=== PATIENT | female | born 1980 | race Caucasian/White ===

== ENCOUNTER → 2020-01-11 | Outpatient (CLI) | payer BC ==
[~2020-01-11] MED LIST: AMOXICILLI400 MG/51 PO; AMOXICILLIN875 MG PO; GLUCOPHAGE500 MG/TAB PO; METFORMIN500 MG PO; NEXIUM 40MG40 MG PO; PERCOCET 325 MG1 TA2 PO; POTASSIUM CITRA; PREDNISONE1 MG PO; UROCIT-K 5540 MG/TAB PO; ZOFRAN ODT4 MG PO; ZYRTEC ALLERGY10 MG PO
== END ==
LOC: MC.RAD 07:30
DX: Z12.31 Encounter for screening mammogram for malignant neoplasm of breast (principal)

== ENCOUNTER 2020-08-01 09:25 | Inpatient (IN) | payer BC ==
[~2020-08-01] VITALS: Ht 157.5 cm; Wt 98.2 kg
[2020-09-04 10:15] LABS: BASO % 0.6 % (0.0-2.0); EOS # 0.1 (0.0-0.7); EOS % 1.1 % (0-4.0); GRAN # 4.1 (1.4-6.5); GRAN % 66.1 % (42.2-75.2); HEMATOCRIT 41.8 % (37.0-47.0); LYMPH # 1.5 (1.2-3.4); LYMPH % 23.2 % (20.0-51.0); MEAN CELL VOLUME 92 fl (80.0-100.0); MEAN CORPUSCULAR HEMOGLOBIN 31 pg (27.0-31.0); MEAN CORPUSCULAR HGB CONC 34 g/dl (33.0-37.0); MEAN PLATELET VOLUME 9.3 fl (7.4-10.4); MONO # 0.5 (0.1-0.6); MONO % 8.5 % (1.7-9.3); PLATELET COUNT 227 K/mm3 (130-400); RED BLOOD COUNT 4.56 M/mm3 (4.10-5.30); REDCELL DISTRIBUTION WIDTH-CV 11.9 % (11.5-14.5)
[2020-09-04 10:24] LABS: CALCIUM 9.5 mg/dL (8.4-10.2); CREATININE, serum 0.85 (0.52-1.25); POTASSIUM 3.7 mmol/L (3.4-5.0)
[2020-09-05] VITALS (10 sets, daily range): BP systolic 116–157; BP diastolic 67–97; PULSE 87–128; TEMP 97.6–98.9
[2020-09-05 06:13] LABS: CALCIUM 9.8 mg/dL (8.4-10.2); CREATININE, serum 0.82 (0.52-1.25); POTASSIUM 3.6 mmol/L (3.4-5.0)
[2020-09-05] MEDS ORDERED: NEXIUM 24HR20 M1 PO (06:25)
[2020-09-05] MEDS ORDERED: ZOFRAN 4MG T4 MG/TAB PO (06:26)
[2020-09-05] MEDS ORDERED: UROCIT-K 1010 MEQ PO (06:27)
[2020-09-05 06:28] LABS: HEMATOCRIT 42.3 % (37.0-47.0); HEMOGLOBIN 13.8 g/dl (12.5-16.0); MEAN CELL VOLUME 94 fl (80.0-100.0); MEAN CORPUSCULAR HEMOGLOBIN 31 pg (27.0-31.0); MEAN CORPUSCULAR HGB CONC 33 g/dl (33.0-37.0); MEAN PLATELET VOLUME 10.8 fl (7.4-10.4); PLATELET COUNT 196 K/mm3 (130-400); RED BLOOD COUNT 4.52 M/mm3 (4.10-5.30); REDCELL DISTRIBUTION WIDTH-CV 11.9 % (11.5-14.5)
[2020-09-05] MEDS ORDERED: WELLBUTRIN XL150 MG PO (06:29)
[2020-09-05] MEDS ORDERED: ZOLOFT 50MG50 MG PO (06:29)
[2020-09-05] MEDS ORDERED: INDERAL 10MG10 MG PO (06:30)
[2020-09-05] MEDS ORDERED: VALTREX 50500 MG/TAB PO (06:30)
[2020-09-05] MEDS ORDERED: LO LOESTRIN FE1 TAB PO (06:31)
[2020-09-05 06:32] LABS: BAND 1 % (0-10); EOSINOPHIL 2 % (0-4); LYMPHOCYTE 32 % (20.0-51.0); NEUTROPHILS 51 % (42.0-75.2); PLATELET ESTIMATE NORMAL (NORMAL)
--- NOTE | 2020-09-05 12:01 | NUR ---
PATIENT UP TO ROOM 331 FROM OR AT 1120. PATIENT IS ALERT AND ORIENTED X4 BUT DROWSY. FAMILY AT BEDSIDE. POSTOP VITAL SIGNS STABLE. POSTOP FLUIDS INFUSTING TO IV IN LEFT HAND. PATIENT HAS RASCON SECURED ON LEFT LEG. URINE CLEAR AND YELLOW. PATIENT HAS 6 LAP SITES WITH EDGES WELL APPROXIMATED. PATIENT ALSO HAS ONE LESLIE DRAIN ON BULB SUCTION. DRAINAGE LOOKS BLOODY AND SITE HAS GAUZE DRESSING CDI. NO FURTHER NEEDS AT THIS TIME. HEAD TO TOE ASSESSMENT COMPLETE. CALL LIGHT WITHIN REACH.
--- NOTE | 2020-09-05 18:40 | NUR ---
PATIENT DOING WELL POST OP. SCD'S BILATERAL LOWER EXTREMITIES. STATES MILD DISCOMFORT THROUGHT DAY MEDICATIONS GIVEN PER ORDERS. NAUSEATED THIS AFTERNOON AFTER ORAL INTAKE, ZOFRAN GIVEN. NO FURTHER NEEDS AT THIS TIME. RASCON MAINTAINED TO DRAINAGE, URINE PEACH COLORED. 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
--- NOTE | 2020-09-05 23:01 | NUR ---
Patient had cefazolin 2g around 1400. She had nausea and vomitting with sweating and bit dizzy. She has scheduled at 2300. RN called Dr Smith and was told that hold the remaining dose. RN notified the patient about the plan. She complained of pain and didn't the B[place]elia. Tramadol PRN given.
[2020-09-06 00:36] VITALS: BP 122/77; PULSE 95; TEMP 98.5
[2020-09-06 04:35] VITALS: BP 143/84; PULSE 87; TEMP 98.1
--- NOTE | 2020-09-06 04:43 | NUR ---
Patient called this morning crying in pain in her abdomen radiating to her left breast. She usually dont want to take Linwood but this time she asked for it. RN been alternating Ultram and tylenol schedule. She has warm compress in her belly and raise her left arm and she said it helps ease the pain a little bit.
--- NOTE | 2020-09-06 05:12 | NUR ---
MARCE drained measured 30ml serous sanguineous and Adames is 1150 bloody with threads of blood.
[2020-09-06 07:07] LABS: CREATININE, serum 0.75 (0.52-1.25); POTASSIUM 3.9 mmol/L (3.4-5.0)
--- NOTE | 2020-09-06 08:00 | NUR ---
PATIENT IS ALERT AND ORIENTED X4. PATIENT HAS IV TO THE LEFT HAND INT. PATIENT AMBULATED DOWN THE HALLWAY THIS AM. PATIENT IS RECIEVING ANTIBIOTICS WITH ZOFRAN BEFORE TO PREVENT NAUSEA AND VOMITING. SHE TOLERATED THIS WELL THIS MORNING WITH NO N/V. PATIENT IS TAKING PAIN MEDS PRESCRIBED AND USING A HOT COMPRESS FOR PAIN. PATIENT WILL HAVE URINARY CATH REMOVED AND POTENTIALLY HAVE THE LESLIE DRAIN REMOVED TODAY. NO FURTHER NEEDS AT THIS TIME. HEAD TO TOE ASSESSMENT COMPLETE. CALL LIGHT WITHIN REACH.
[2020-09-06 08:13] LABS: HEMATOCRIT 37.3 % (37.0-47.0); HEMOGLOBIN 12.2 g/dl (12.5-16.0)
[2020-09-06 08:18] VITALS: BP 122/78; PULSE 91; TEMP 98.1
[2020-09-06 11:14] VITALS: BP 106/65; PULSE 98; TEMP 98.7
--- NOTE | 2020-09-06 11:46 | NUR ---
Sw met with the pt who stated her preference to return home once medically stable. The lives at home with her , Bhaskar (ph [phone]). Pt does not have a [facility] and is not interested in one at this time. The pt is independent on all ADLs and does not use any DME. The PCP is Jose De Jesus Cruz and she gets her medications from [facility] in [place], [place]. The pt has never used HH services before. No other needs stated at this time. Sw to await further recommendations and follow up as needed. D/C: Home.
[2020-09-06 15:55] VITALS: BP 124/61; PULSE 102; TEMP 98.3
--- NOTE | 2020-09-06 17:47 | NUR ---
Patient has done well today. Ready for discharge. Have been in contact with , who also spoke to patient via phone. Int Dc. We reviewed medication regiemnt for pain with tyelnol & motrin. Patient understands. We reviewed [facility]. Sign & symptoms of when to call doctor. Patient aware of follow up appt. Denies questions and concerns. Patient wheeled out with all belonings.
--- NOTE | 2020-09-08 11:18 | NUR ---
First visit from the art therapy specialist. No needs right now.
== END 2020-09-06 17:52 | disposition home or self-care (01) | DRG 658 ==
LOC: SURG 09-01 07:30 → INPTSU 09-05 05:33 → SURG 09-05 07:30
PROVIDERS: ADMIT Urology
PROC: 8E0W4CZ Robotic Assisted Procedure of Trunk Region, Percutaneous Endoscopic Approach (ICD-10-PCS; 2020-09-05)
PROC: 0TB14ZZ Excision of Left Kidney, Percutaneous Endoscopic Approach (ICD-10-PCS; principal; 2020-09-05 07:30)
DX: C64.2 Malignant neoplasm of left kidney, except renal pelvis (principal); Z20.822 Contact with and (suspected) exposure to COVID-19; K21.9 Gastro-esophageal reflux disease without esophagitis; Z87.442 Personal history of urinary calculi; Z86.718 Personal history of other venous thrombosis and embolism
CPT/HCPCS: A4314; A9284; J0330; J0690; J1100; J1170; J1885; J2250; J2370; J2405; J2704; J2795; J3010; J7120

== ENCOUNTER → 2020-12-21 | Outpatient (CLI) | payer BC ==
[~2020-12-21] MED LIST changes: +INDERAL 10MG10 MG PO; +LO LOESTRIN FE1 TAB PO; +NEXIUM 24HR20 M1 PO; +UROCIT-K 1010 MEQ PO; +VALTREX 50500 MG/TAB PO; +WELLBUTRIN XL150 MG PO; +ZOFRAN 4MG T4 MG/TAB PO; +ZOLOFT 50MG50 MG PO
== END ==
LOC: COL.VAS 11:15
DX: M79.89 Other specified soft tissue disorders (principal)

== ENCOUNTER → 2021-04-16 | Outpatient (CLI) | payer BC | LOC: MC.RAD 08:26 | DX: Z12.31 Encounter for screening mammogram for malignant neoplasm of breast (principal) ==